=== PATIENT | female | born 1965 | race Caucasian/White ===

== ENCOUNTER 2020-03-30 16:39 | Emergency (ER) | payer SELFPAY ==
[~2020-03-30] VITALS: Ht 167.6 cm; Wt 70.0 kg
[~2020-03-30 16:39] MED LIST: AMOXIL875 MG OR; IBUPROFEN200 M1 OR; LORTAB 5 OR; MOTRIN600 MG OR; NEOPROFEN10 MG/ML IV; VICOPROFEN OR
[2020-03-30] MEDS ORDERED: PROZAC20 MG PO (17:09)
[2020-03-30] MEDS ORDERED: KLONOPIN0.5 MG PO (17:10)
[2020-03-30 17:19] LABS: HEMATOCRIT 44.3 % (37.0-47.0); HEMOGLOBIN 14.8 g/dl (12.0-16.0); IMMATURE GRANULOCYTES 0.2 % (0.0-5.0); MEAN CORPUSCULAR HGB 33.4 pG CALC (26.0-32.0); MEAN CORPUSCULAR HGB CONC 33.4 g/dL CAL (32.0-36.0); NEUT# 5.22 thou/uL (2.00-7.15); RED BLOOD COUNT 4.43 mill/uL (4.20-5.60); RED CELL DISTRI WIDTH 13.1 % (11.5-15.5)
[2020-03-30 17:33] LABS: URINE BILIRUBIN - DIPSTICK NEGATIVE (NEGATIVE); URINE BLOOD DIPSTICK MODERATE (NEGATIVE); URINE COLOR YELLOW; URINE GLUCOSE - DIPSTICK NEGATIVE (NEGATIVE); URINE KETONE NEGATIVE (NEGATIVE); URINE LEUK ESTERASE NEGATIVE (NEGATIVE); URINE NITRITE - DIPSTICK NEGATIVE (Negative); URINE PROTEIN - DIPSTICK NEGATIVE (NEG-TRACE); URINE SPECIFIC GRAVITY 1.025; URINE UROBILINOGEN - DIPSTICK 0.2 E.U./dL (0.2)
[2020-03-30 17:38] LABS: ALBUMIN 4.6 g/dL (3.2-5.0); ALKALINE PHOSPHATASE 60 u/l (38-126); ANION GAP 12 (6-22 (CALC)); BILIRUBIN, TOTAL 0.6 mg/dL (0.0-1.4); BUN 6 mg/dL (7-17); BUN/CREATININE RATIO 12 (12-20 (CALC)); CARBON DIOXIDE 21 mmol/l (22-30); CHLORIDE 105 mmol/l (95-108); CREATININE 0.5 mg/dL (0.5-1.0); GFR > 60 ML/MIN (>=60 (CALC)); GFR FOR AFR.AMER. > 60 ML/MIN (>=60 (CALC)); LIPASE 60 u/l (23-300); POTASSIUM 4.2 mmol/l (3.5-5.1); SGOT/AST 24 u/l (14-36); SODIUM 134 mmol/l (137-146); TOTAL PROTEIN 7.2 g/dL (6.3-8.2)
[2020-03-30 17:40] LABS: URINE SQUAMOUS EPITHELIAL CELL FEW EPI/hpf (0-FEW); URINE WBC 0-2 WBC/hpf (0-5)
[2020-03-30 18:30] VITALS: BP 123/86
== END 2020-03-30 18:30 | disposition home or self-care (01) | DRG 204 ==
LOC: ED 16:39
PROVIDERS: Family Medicine
DX: R07.81 Pleurodynia (principal); R31.9 Hematuria, unspecified; F17.210 Nicotine dependence, cigarettes, uncomplicated

== ENCOUNTER 2020-08-20 13:24 | Emergency (ER) | payer SELFPAY ==
[~2020-08-20] VITALS: Ht 167.6 cm; Wt 72.0 kg
[~2020-08-20 13:24] MED LIST changes: +KLONOPIN0.5 MG PO; +PROZAC20 MG PO
[2020-08-20] MEDS ORDERED: TRAMADOL HYDROC50 M1 PO (16:57)
[2020-08-20 17:04] VITALS: BP 154/87
== END 2020-08-20 17:30 | disposition home or self-care (01) | DRG 93 ==
LOC: ED 13:24
DX: G89.29 Other chronic pain (principal); M25.561 Pain in right knee; F41.9 Anxiety disorder, unspecified; F32.9 Major depressive disorder, single episode, unspecified; F17.210 Nicotine dependence, cigarettes, uncomplicated

== ENCOUNTER 2021-10-25 11:18 | Emergency (ER) | payer SELFPAY ==
[~2021-10-25] VITALS: Ht 167.6 cm; Wt 85.0 kg
[~2021-10-25 11:18] MED LIST changes: +TRAMADOL HYDROC50 M1 PO
[2021-10-25 12:07] LABS: HEMATOCRIT 44.7 % (37.0-47.0); HEMOGLOBIN 14.5 g/dl (12.0-16.0); IMMATURE GRANULOCYTES 0.2 % (0.0-5.0); MEAN CELL VOLUME 103.5 fL CALC (80.0-100.0); MEAN CORPUSCULAR HGB 33.6 pG CALC (26.0-32.0); MEAN CORPUSCULAR HGB CONC 32.4 g/dL CAL (32.0-36.0); NEUT# 5.68 thou/uL (2.00-7.15); RED BLOOD COUNT 4.32 mill/uL (4.20-5.60); RED CELL DISTRI WIDTH 12.8 % (11.5-15.5)
[2021-10-25 12:36] LABS: ALBUMIN 4.1 g/dL (3.2-5.0); ALKALINE PHOSPHATASE 70 u/l (38-126); BILIRUBIN, TOTAL 0.8 mg/dL (0.0-1.4); BUN 3 mg/dL (7-17); BUN/CREATININE RATIO 6 (12-20 (CALC)); C-REACTIVE PROTEIN 0.9 mg/dL (0-0.9); CHLORIDE 105 mmol/l (95-108); CREATININE 0.6 mg/dL (0.5-1.0); GFR > 60 ML/MIN (>=60 (CALC)); GFR FOR AFR.AMER. > 60 ML/MIN (>=60 (CALC)); POTASSIUM 4.4 mmol/l (3.5-5.1); SGOT/AST 41 u/l (14-36); SODIUM 140 mmol/l (137-146); TOTAL PROTEIN 6.8 g/dL (6.3-8.2)
[2021-10-25 12:46] LABS: ANION GAP 12 (6-22 (CALC)); CARBON DIOXIDE 27 mmol/l (22-30)
[2021-10-25 15:13] VITALS: BP 99/58
== END 2021-10-25 15:23 | disposition home or self-care (01) | DRG 179 ==
LOC: ED 11:18
PROVIDERS: Family Medicine
DX: U07.1 COVID-19 (principal); F41.9 Anxiety disorder, unspecified; F32.A Depression, unspecified; F17.210 Nicotine dependence, cigarettes, uncomplicated

== ENCOUNTER 2022-07-02 12:56 | Emergency (ER) | payer SELFPAY ==
[~2022-07-02] VITALS: Ht 167.6 cm; Wt 75.0 kg
[2022-07-02 13:27] LABS: HEMATOCRIT 47.3 % (37.0-47.0); IMMATURE GRANULOCYTES 0.2 % (0.0-5.0); MEAN CELL VOLUME 99.8 fL CALC (80.0-100.0); MEAN CORPUSCULAR HGB 33.8 pG CALC (26.0-32.0); MEAN CORPUSCULAR HGB CONC 33.8 g/dL CAL (32.0-36.0); NEUT# 5.04 thou/uL (2.00-7.15); RED BLOOD COUNT 4.74 mill/uL (4.20-5.60); RED CELL DISTRI WIDTH 12.8 % (11.5-15.5)
[2022-07-02 13:54] LABS: ALBUMIN 4.5 g/dL (3.2-5.0); ALKALINE PHOSPHATASE 71 u/l (38-126); BILIRUBIN, TOTAL 0.7 mg/dL (0.0-1.4); BUN 5 mg/dL (7-17); BUN/CREATININE RATIO 9 (12-20 (CALC)); CHLORIDE 110 mmol/l (95-108); CREATININE 0.6 mg/dL (0.5-1.0); GFR FOR AFR.AMER. > 60 ML/MIN (>=60 (CALC)); GFR OTHER RACES > 60 ML/MIN (>=60 (CALC)); POTASSIUM 4.3 mmol/l (3.5-5.1); SGOT/AST 32 u/l (14-36); SODIUM 138 mmol/l (137-146); TOTAL PROTEIN 7.2 g/dL (6.3-8.2)
[2022-07-02 13:58] LABS: ANION GAP 15 (6-22 (CALC)); CARBON DIOXIDE 17 mmol/l (22-30)
[2022-07-02 14:32] VITALS: BP 174/82
[2022-07-02] MEDS ORDERED: XANAX0.25 MG PO (15:15)
[2022-07-03] MEDS ORDERED: PHENERGAN25 MG RE (07:33)
[2022-07-03] MEDS ORDERED: MAGNESIUM200 MG PO (07:33)
[2022-07-03] MEDS ORDERED: IMODIUM2 MG PO (07:33)
[2022-07-03] MEDS ORDERED: ZOFRAN4 MG/TAB PO (07:33)
== END 2022-07-02 15:37 | disposition home or self-care (01) | DRG 313 ==
LOC: ED 12:56
PROVIDERS: Family Medicine
DX: R07.89 Other chest pain (principal); F41.0 Panic disorder [episodic paroxysmal anxiety]; F32.A Depression, unspecified; F17.200 Nicotine dependence, unspecified, uncomplicated

== ENCOUNTER 2022-07-03 03:50 | Emergency (ER) | payer SELFPAY ==
[2022-07-03] VITALS (9 sets, daily range): BP systolic 126–161; BP diastolic 59–134
[~2022-07-03] VITALS: Ht 167.6 cm; Wt 75.0 kg
[~2022-07-03 03:50] MED LIST changes: +XANAX0.25 MG PO
[2022-07-03 04:12] LABS: HEMOGLOBIN 15.7 g/dl (12.0-16.0); IMMATURE GRANULOCYTES 0.5 % (0.0-5.0); MEAN CELL VOLUME 101.1 fL CALC (80.0-100.0); MEAN CORPUSCULAR HGB 33.8 pG CALC (26.0-32.0); MEAN CORPUSCULAR HGB CONC 33.4 g/dL CAL (32.0-36.0); NEUT# 7.45 thou/uL (2.00-7.15); RED BLOOD COUNT 4.65 mill/uL (4.20-5.60); RED CELL DISTRI WIDTH 12.8 % (11.5-15.5)
[2022-07-03 04:28] LABS: ALBUMIN 4.3 g/dL (3.2-5.0); ALKALINE PHOSPHATASE 66 u/l (38-126); BILIRUBIN, TOTAL 0.7 mg/dL (0.0-1.4); BUN 7 mg/dL (7-17); BUN/CREATININE RATIO 12 (12-20 (CALC)); CHLORIDE 105 mmol/l (95-108); CREATININE 0.6 mg/dL (0.5-1.0); GFR FOR AFR.AMER. > 60 ML/MIN (>=60 (CALC)); GFR OTHER RACES > 60 ML/MIN (>=60 (CALC)); LIPASE 53 u/l (23-300); MAGNESIUM 1.5 mg/dL (1.6-2.3); SGOT/AST 31 u/l (14-36); SODIUM 139 mmol/l (137-146); TOTAL PROTEIN 6.7 g/dL (6.3-8.2)
[2022-07-03 04:30] LABS: D-DIMER 0.24 mg/L (0.19-0.60)
[2022-07-03 04:32] LABS: ANION GAP 15 (6-22 (CALC)); CARBON DIOXIDE 23 mmol/l (22-30)
[2022-07-03 04:33] LABS: ACT PARTIAL THROMBO TIME 27.3 SECONDS (20.0-32.5); PROTHROMBIN TIME 10.4 SECONDS (9.0-12.5)
[2022-07-03 04:40] LABS: MYOGLOBIN 32 ng/mL (0 - 62)
[2022-07-03 06:37] LABS: URINE BILIRUBIN - DIPSTICK NEGATIVE (NEGATIVE); URINE BLOOD DIPSTICK MODERATE (NEGATIVE); URINE COLOR YELLOW; URINE GLUCOSE - DIPSTICK NEGATIVE (NEGATIVE); URINE KETONE NEGATIVE (NEGATIVE); URINE LEUK ESTERASE NEGATIVE (NEGATIVE); URINE PROTEIN - DIPSTICK NEGATIVE (NEG-TRACE); URINE UROBILINOGEN - DIPSTICK 0.2 E.U./dL (0.2)
[2022-07-03 06:41] LABS: URINE NITRITE - DIPSTICK NEGATIVE (Negative)
[2022-07-03 06:47] LABS: URINE SQUAMOUS EPITHELIAL CELL FEW EPI/hpf (0-FEW); URINE WBC 0-2 WBC/hpf (0-5)
[2022-07-03] MEDS ORDERED: IMODIUM2 MG PO (07:33)
[2022-07-03] MEDS ORDERED: PHENERGAN25 MG RE (07:33)
[2022-07-03] MEDS ORDERED: MAGNESIUM200 MG PO (07:33)
[2022-07-03] MEDS ORDERED: ZOFRAN4 MG/TAB PO (07:33)
== END 2022-07-03 07:51 | disposition home or self-care (01) | DRG 641 ==
LOC: ED 03:50
PROVIDERS: Family Medicine
DX: E83.42 Hypomagnesemia (principal); K52.9 Noninfective gastroenteritis and colitis, unspecified
CPT/HCPCS: Q9967

== ENCOUNTER 2024-06-09 12:34 | Emergency (ER) | payer OTHER ==
[~2024-06-09] VITALS: Ht 167.6 cm; Wt 70.0 kg
[2024-06-09] VITALS (8 sets, daily range): BP systolic 69–152; BP diastolic 39–111
[~2024-06-09 12:34] MED LIST changes: +IMODIUM2 MG PO; +LISINOPRIL10 MG PO; +MAGNESIUM200 MG PO; +PHENERGAN25 MG RE; +ZOFRAN4 MG/TAB PO
[2024-06-09] MEDS ORDERED: NAPROXEN500 MG PO (14:19)
[2024-06-09] MEDS ORDERED: KETOROLAC TROMETHAMINE 30 MG/ML SDV IM ONE (14:25)
== END 2024-06-09 14:43 | disposition home or self-care (01) | DRG 563 ==
LOC: ED 12:34
DX: S93.402A Sprain of unspecified ligament of left ankle, initial encounter (principal); F41.9 Anxiety disorder, unspecified; F32.A Depression, unspecified; F17.200 Nicotine dependence, unspecified, uncomplicated; X50.0XXA Overexertion from strenuous movement or load, initial encounter; Y93.H9 Activity, other involving exterior property and land maintenance, building and construction; Y92.007 Garden or yard of unspecified non-institutional (private) residence as the place of occurrence of the external cause

== ENCOUNTER 2024-09-18 10:07 | Observation (INO) | payer OTHER ==
[~2024-09-18] VITALS: Ht 167.6 cm; Wt 70.0 kg
[2024-09-18] VITALS (42 sets, daily range): BP systolic 105–173; BP diastolic 65–127
[~2024-09-18 10:07] MED LIST changes: +NAPROXEN500 MG PO
--- NOTE | 2024-09-18 10:10 | NUR ---
PT WALKED BACK TO ER ROOM 10 WITH A STEADY GAIT
[2024-09-18] MEDS ORDERED: ASPIRIN 81 MG/TAB PO ONE (10:20)
[2024-09-18 10:49] LABS: BASO% 0.3 % (0-3); EOS% 2.7 % (0-8); HEMATOCRIT 44.6 % (37.0-47.0); HEMOGLOBIN 14.6 g/dl (12.0-16.0); IMMATURE GRANULOCYTES 0.2 % (0.0-5.0); LYMPH% 17.6 % (15-41); MEAN CELL VOLUME 104.7 fL CALC (80.0-100.0); MEAN CORPUSCULAR HGB 34.3 pG CALC (26.0-32.0); MEAN CORPUSCULAR HGB CONC 32.7 g/dL CAL (32.0-36.0); MONO% 6.5 % (2-13); NEUT# 6.71 thou/uL (2.00-7.15); NEUT% 72.7 % (42-76); RED BLOOD COUNT 4.26 mill/uL (4.20-5.60); RED CELL DISTRI WIDTH 13.1 % (11.5-15.5)
[2024-09-18 11:07] LABS: ALBUMIN 4.5 g/dL (3.2-5.0); ALKALINE PHOSPHATASE 72 u/l (38-126); ANION GAP 13 (6-22 (CALC)); BILIRUBIN, TOTAL 0.5 mg/dL (0.02-1.3); BUN 4 mg/dL (7-17); BUN/CREATININE RATIO 7 (12-20 (CALC)); CARBON DIOXIDE 26 mmol/l (22-30); CHLORIDE 101 mmol/l (95-108); CREATININE 0.6 mg/dL (0.5-1.0); ESTIMATED GFR 103 ML/MIN (>=90 (CALC)); POTASSIUM 4.6 mmol/l (3.5-5.1); SGOT/AST 39 u/l (14-36); TOTAL PROTEIN 6.8 g/dL (6.3-8.2)
[2024-09-18 11:08] LABS: SODIUM 135 mmol/l (137-146)
[2024-09-18] MEDS ORDERED: methylPREDNISolone SODIUM SUCC 125 MG/2 ML SDV IV ONE (11:10)
[2024-09-18] MEDS ORDERED: IPRATROPIUM-Albuterol 0.5MG-2.5MG/3 ML NEB ONE ×2 (11:10)
[2024-09-18] MEDS ORDERED: KETOROLAC TROMETHAMINE 15 MG/ML SDV IV ONE (12:45)
[2024-09-18] MEDS ORDERED: FUROSEMIDE 40 MG/4 ML SDV IV ONE (14:45)
[2024-09-18] MEDS ORDERED: guaiFENesin-CODEINE 200-20 MG/10 ML UDC PO ONE (15:40)
--- NOTE | 2024-09-18 16:57 | NUR ---
Alexander Jackman notified that patient requesting to leave AMA. Patient unwilling to be admitted to hospital.
--- NOTE | 2024-09-18 17:00 | NUR ---
Patient educated on COPD disease process, hypoxia and current diagnosis. Patient 86% on room air. Patient's O2 sats 93% on 2L NC. Dr. Munoz on phone and communictaed to patient that hospital admission recommended.
[2024-09-18] MEDS ORDERED: IPRATROPIUM-Albuterol 0.5MG-2.5MG/3 ML NEB PRN (17:05)
[2024-09-18] MEDS ORDERED: MAGNESIUM HYDROXIDE 30 ML UDC PO PRN (17:05)
[2024-09-18] MEDS ORDERED: ACETAMINOPHEN 325 MG/TAB PO PRN (17:05)
--- NOTE | 2024-09-18 17:37 | NUR ---
Report called to WILBUR Cespedes.
--- NOTE | 2024-09-18 17:43 | NUR ---
Patient transported to ICU for [facility] tele admission via wheelchair.
--- NOTE | 2024-09-18 17:46 | NUR ---
PATIENT ARRIVED TO ICU FROM ED patient arrived via wheel chair ambulated to bed; vitals was collected. O2 was destating in the 80s, applied patient on NC @3L and RT was called; head to toe was completed; personal items is within reach; educated distribution estimator light and safety measures; allergy band was applied; medicated per emar; nictine patch was applied to left upper arm, chart was completed; call light within reach, bed in lowest postion;safety measures in place
[2024-09-18] MEDS ORDERED: clonazePAM 0.5 MG/TAB PO SCH (18:00)
[2024-09-18] MEDS ORDERED: methylPREDNISolone Sod Succ 40 MG/ML SDV IV SCH (18:00)
[2024-09-18] MEDS ORDERED: DOXYCYCLINE HYCLATE 100 MG in SODIUM CHLORIDE 0.9% 100 ML IV SCH (18:00)
[2024-09-18] MEDS ORDERED: NICOTINE TRANSDERMAL 21 MG/PATCH TD SCH (18:00)
[2024-09-18] MEDS ORDERED: guaiFENesin-CODEINE 200-20 MG/10 ML UDC PO PRN (19:00)
--- NOTE | 2024-09-18 19:00 | NUR ---
PERFORMED BEDSIDE SHIFT REPORT ON PATIENT AND HEARD STRONG PRODUCTIVE COUGH AND SPOKE AND REQUESTED DR. PARK FOR A PRN COUGH MEDICATION. NEW ORDERS GIVEN. PT GIVEN A SNACK.
[2024-09-18] MEDS ORDERED: BAYER ASPIRIN E81 MG PO (19:20)
[2024-09-18] MEDS ORDERED: ENOXAPARIN SODIUM 40 MG/0.4 ML SYR SC SCH (21:00)
--- NOTE | 2024-09-18 21:00 | NUR ---
PT REQUESTED SNACK AND OFFERED FLUIDS. PATIENT WAS EDUCATED ABOUT HER NIGHT MEDICATIONS.
--- NOTE | 2024-09-18 23:00 | NUR ---
PT STATED THAT "THE COUGH MEDICINE MAKES THE PAIN DECREASE, IT MAKES ME A LITTLE DROWSY TOO". PATIENT'S COUGH HAS BEEN LESS SINCE COUGH MEDICINE GIVEN.
[2024-09-19] VITALS (59 sets, daily range): BP systolic 82–150; BP diastolic 55–105
--- NOTE | 2024-09-19 | NUR ---
PATIENT WAS OFFERED TOILETING BUT REFUSED SHE SAID SHE HAD VOIDED PRIOR TO SHIFT CHANGE.
--- NOTE | 2024-09-19 01:00 | NUR ---
PT RESTING IN PRONE POSITION.
[2024-09-19 05:11] LABS: BASO% 0.1 % (0-3); HEMATOCRIT 46.3 % (37.0-47.0); HEMOGLOBIN 15.4 g/dl (12.0-16.0); IMMATURE GRANULOCYTES 0.3 % (0.0-5.0); MEAN CELL VOLUME 103.6 fL CALC (80.0-100.0); MEAN CORPUSCULAR HGB 34.5 pG CALC (26.0-32.0); MEAN CORPUSCULAR HGB CONC 33.3 g/dL CAL (32.0-36.0); MONO% 2.6 % (2-13); NEUT# 11.51 thou/uL (2.00-7.15); RED BLOOD COUNT 4.47 mill/uL (4.20-5.60); RED CELL DISTRI WIDTH 12.7 % (11.5-15.5)
[2024-09-19] MEDS ORDERED: SODIUM CHLORIDE 0.9% 100 ML IV ONE (05:15)
[2024-09-19 05:22] LABS: ALBUMIN 4.4 g/dL (3.2-5.0); BILIRUBIN, TOTAL 0.5 mg/dL (0.02-1.3); CREATININE 0.5 mg/dL (0.5-1.0); TOTAL PROTEIN 6.8 g/dL (6.3-8.2)
[2024-09-19 05:28] LABS: POTASSIUM 5.3 mmol/l (3.5-5.1)
--- NOTE | 2024-09-19 06:00 | NUR ---
HUNG PATIENT'S MORNING ANTIBIOTICS AND PATIENT DENIED FLUIDS OR BATHROOM.
--- NOTE | 2024-09-19 08:00 | NUR ---
PATIENT SITTING ON THE SIDE OF THE BED FOR BREAKFAST. ASSESSMENT COMPLETED. PATIENT ALERT AND ORIENTED X 4. DENIES PAIN. LUNG WHEEZES/DIMINISHED TO ASCULTATION. BREATHING EVEN AND UNLABORED ON 4L NC. DENIES OXYGEN USE AT HOME. AFEBRILE 97.1. SR ON THE MONITOR. SAFETY MEASURES IN PLACE INCLUDING BED IN LOW POSITION AND CALL LIGHT RESTING NEXT TO L ARM. NO APPARENT DISTRESS NOTED. WILL CONTINUE WITH PLAN OF CARE.
[2024-09-19] MEDS ORDERED: LISINOPRIL 10 MG/TAB PO SCH (09:00)
[2024-09-19] MEDS ORDERED: FLUoxetine HCL 10 MG/CAP PO SCH (09:00)
[2024-09-19] MEDS ORDERED: NITROGLYCERIN 0.4 MG/TAB SL PRN (09:05)
[2024-09-19] MEDS ORDERED: ASPIRIN 81 MG/TAB PO SCH (10:00)
[2024-09-19 10:04] LABS: CHOLESTEROL HDL RATIO 2.9 (<4.4 (CALC))
[2024-09-19] MEDS ORDERED: cefTRIAXone SODIUM 2 GM in SODIUM CHLORIDE 0.9% 100 ML IV SCH (10:30)
[2024-09-19 10:35] LABS: TSH, 3RD GENERATION 0.3 uIU/mL (0.47 - 4.68)
--- NOTE | 2024-09-19 12:00 | NUR ---
PATIENT LYING IN BED. MOTHER AT BEDSIDE. PATIENT C/O COUGH, WILL ATTEMPT TO FIND PATIENT COUGH DROPS REQUESTED. NO ADDITIONAL CONCERNS AT THIS TIME. WILL CONTINUE TO MONITOR.
--- NOTE | 2024-09-19 15:25 | NUR ---
PER PATIENT, ONLY MOTHER AND DAUGHTEREVITA, TO RECEIVE INFORMATION OVER THE PHONE
--- NOTE | 2024-09-19 16:02 | NUR ---
PATIENT NOTED TO BE SOB, RECEIVED BREATHING TX APPROX 1530. DENIES ADDITIONAL CONCERNS AT THIS TIME. WILL CONTINUE WITH PLAN OF CARE
--- NOTE | 2024-09-19 19:30 | NUR ---
awake. denies distress. o2 cont per nc. quality assurance monitor shows sinus rhythm freq pvcs. po fluids taken well. voids per bathroom. fall precautions cont.
[2024-09-19] MEDS ORDERED: ATORVASTATIN CALCIUM 40 MG/TAB PO SCH (21:00)
--- NOTE | 2024-09-19 22:45 | NUR ---
requested turkey wrap-given.
[2024-09-20] VITALS (15 sets, daily range): BP systolic 93–173; BP diastolic 55–101
--- NOTE | 2024-09-20 00:01 | NUR ---
eyes closed. no distress.
--- NOTE | 2024-09-20 04:00 | NUR ---
resting quietly. no apparent distress.
--- NOTE | 2024-09-20 04:30 | NUR ---
lab here. blood drawn.
[2024-09-20 04:41] LABS: BASO% 0.1 % (0-3); EOS% 0.1 % (0-8); HEMATOCRIT 46.6 % (37.0-47.0); HEMOGLOBIN 15.4 g/dl (12.0-16.0); IMMATURE GRANULOCYTES 0.3 % (0.0-5.0); LYMPH% 5.9 % (15-41); MEAN CELL VOLUME 103.6 fL CALC (80.0-100.0); MEAN CORPUSCULAR HGB 34.2 pG CALC (26.0-32.0); MONO% 2.8 % (2-13); NEUT# 17.85 thou/uL (2.00-7.15); NEUT% 90.8 % (42-76); RED BLOOD COUNT 4.5 mill/uL (4.20-5.60); RED CELL DISTRI WIDTH 13.1 % (11.5-15.5)
[2024-09-20 05:14] LABS: ALBUMIN 4.4 g/dL (3.2-5.0); BILIRUBIN, TOTAL 0.4 mg/dL (0.02-1.3); POTASSIUM 5.1 mmol/l (3.5-5.1); TOTAL PROTEIN 6.7 g/dL (6.3-8.2)
[2024-09-20 05:18] LABS: CREATININE 0.5 mg/dL (0.5-1.0)
--- NOTE | 2024-09-20 07:44 | NUR ---
PATIENT SITTING UP IN BED. ASSESSMENT COMPLETED. PATIENT ALERT AND ORIENTED X 4. DENIES PAIN AT THIS TIME. LUNGS CLEAR/DIMINISHED TO ASCULTATION. BREATHING EVEN AND UNLABORED ON ROOM AIR. OXY SAT 94%. PATIENT DENIES CONCERNS AT THIS TIME. SAFETY MEASURES IN PLACE INCLUDING BED IN LOW POSITION AND CALL LIGHT RESTING NEXT TO L HAND. NO APPARENT DISTRESS NOTED. WILL CONTINUE WITH PLAN OF CARE.
[2024-09-20] MEDS ORDERED: IPRATROPIUM-Albuterol 0.5MG-2.5MG/3 ML NEB PRN (08:36)
[2024-09-20] MEDS ORDERED: methylPREDNISolone Sod Succ 40 MG/ML SDV IV SCH (09:00)
--- NOTE | 2024-09-20 12:22 | NUR ---
PATIENT SITTING UP IN BED. VISITOR AT BEDSIDE. DENIES CONCERNS AT THIS TIME. NO APPARENT DISTRESS NOTED. WILL CONTINUE WITH PLAN OF CARE
--- NOTE | 2024-09-20 19:10 | NUR ---
awake. denies resp diff. retouching operator shows sinus rhythm freq pvcs. saline lock in place. po fluids taken well. voids per bathroom. fall precautions cont.
--- NOTE | 2024-09-20 21:40 | NUR ---
sputum spec collected & sent to lab.
[2024-09-21 00:01] VITALS: BP 98/67
--- NOTE | 2024-09-21 00:01 | NUR ---
eyes closed. no distress.
[2024-09-21 04:00] VITALS: BP 113/71
--- NOTE | 2024-09-21 04:00 | NUR ---
eyes closed. radiographer cardiac catheterization shows sinus rhythm freq pvcs.
--- NOTE | 2024-09-21 04:50 | NUR ---
lab here. blood drawn.
[2024-09-21 05:09] LABS: BASO% 0.1 % (0-3); EOS% 0.2 % (0-8); HEMATOCRIT 48.8 % (37.0-47.0); HEMOGLOBIN 15.7 g/dl (12.0-16.0); IMMATURE GRANULOCYTES 0.3 % (0.0-5.0); LYMPH% 30.5 % (15-41); MEAN CELL VOLUME 107.5 fL CALC (80.0-100.0); MEAN CORPUSCULAR HGB 34.6 pG CALC (26.0-32.0); MEAN CORPUSCULAR HGB CONC 32.2 g/dL CAL (32.0-36.0); MONO% 6.7 % (2-13); NEUT# 8.55 thou/uL (2.00-7.15); NEUT% 62.2 % (42-76); RED BLOOD COUNT 4.54 mill/uL (4.20-5.60); RED CELL DISTRI WIDTH 13.3 % (11.5-15.5)
[2024-09-21 05:33] LABS: ALBUMIN 4.3 g/dL (3.2-5.0); BILIRUBIN, TOTAL 0.5 mg/dL (0.02-1.3); CREATININE 0.6 mg/dL (0.5-1.0); MAGNESIUM 2.1 mg/dL (1.6-2.3); POTASSIUM 4.2 mmol/l (3.5-5.1); TOTAL PROTEIN 6.6 g/dL (6.3-8.2)
[2024-09-21 06:01] VITALS: BP 115/70
--- NOTE | 2024-09-21 08:00 | NUR ---
REPORT RECEIVED FROM NIGHT NURSE. PT IS A/O. CURRENTLY ON RA; SATTING 90%. LUNG SOUNDS DIMINISHED THROUGHOUT. PT HAS NO SOB AT REST BUT DOES WITH ACTIVITY. PT IS EAGER TO GO HOME. DENIES ANY NEEDS. AFEBRILE. CALL LIGHT IN REACH. VSS.
[2024-09-21 10:05] VITALS: BP 124/96
[2024-09-21] MEDS ORDERED: DOXYCYCLINE100 MG PO (10:34)
[2024-09-21] MEDS ORDERED: COD PO (10:41)
[2024-09-21] MEDS ORDERED: GUAIFENESIN PO (10:41)
[2024-09-21] MEDS ORDERED: PREDNISONE10 MG PO (10:43)
--- NOTE | 2024-09-21 11:40 | NUR ---
PT GIVEN DISCHARGE EDUCATION. AWARE OF NEW PRESCRIPTIONS. GIVEN WORK RELEASE. ALL PT QUESTIONS ANSWERED. IV REMOVED. ALL BELONGINGS GATHERED AND SENT HOME WITH PT. PT IN GOOD CONDITION UPON DISCHARGE AND TAKEN TO ENTRANCE BY WHEELCHAIR.
--- NOTE | 2024-09-24 15:03 | NUR ---
Discharge follow up call completed 09/24/24. Patient states she is still having SOB and chest tightness but thinks it is a little better than when hospitalized. Patient is taking medication as directed. Patient is trying to schedule a follow up apppointment but has been unable to do so yet due to holiday closures. She will continue trying. No needs or concerns verbalized at this time.
== END 2024-09-21 11:40 | disposition home or self-care (01) | DRG 202 ==
LOC: ED 10:07 → ED-I 14:31 → ED 14:45 → ICU 14:46
PROVIDERS: Family Medicine; Internal Medicine; ADMIT Internal Medicine; ATTEND Internal Medicine
DX: J20.9 Acute bronchitis, unspecified (principal); J96.01 Acute respiratory failure with hypoxia; R07.89 Other chest pain; I49.3 Ventricular premature depolarization; I10 Essential (primary) hypertension; F41.9 Anxiety disorder, unspecified; F32.A Depression, unspecified; F17.200 Nicotine dependence, unspecified, uncomplicated
CPT/HCPCS: J0696; J1650; J1885; J1940

== ENCOUNTER 2024-12-18 22:51 | Emergency (ER) | payer OTHER ==
[~2024-12-18] VITALS: Ht 167.6 cm; Wt 65.0 kg
[~2024-12-18 22:51] MED LIST changes: +BAYER ASPIRIN E81 MG PO; +COD PO; +DOXYCYCLINE100 MG PO; +GUAIFENESIN PO; +PREDNISONE10 MG PO
[2024-12-18 23:09] VITALS: BP 142/107
[2024-12-18] MEDS ORDERED: SODIUM CHLORIDE 0.9% 1,000 ML IV STA (23:12)
[2024-12-18] MEDS ORDERED: PROMETHAZINE HCL 25 MG/ML AMP IV ONE (23:15)
[2024-12-18] MEDS ORDERED: KETOROLAC TROMETHAMINE 30 MG/ML SDV IV ONE (23:15)
[2024-12-18 23:18] VITALS: BP 176/123
[2024-12-18 23:30] VITALS: BP 160/109
[2024-12-18 23:44] LABS: HEMATOCRIT 49.9 % (37.0-47.0); HEMOGLOBIN 16.8 g/dl (12.0-16.0); IMMATURE GRANULOCYTES 0.3 % (0.0-5.0); LYMPH% 9.3 % (15-41); MEAN CORPUSCULAR HGB 33.2 pG CALC (26.0-32.0); MEAN CORPUSCULAR HGB CONC 33.7 g/dL CAL (32.0-36.0); NEUT# 17.63 thou/uL (2.00-7.15); NEUT% 84.4 % (42-76); RED BLOOD COUNT 5.06 mill/uL (4.20-5.60); RED CELL DISTRI WIDTH 11.8 % (11.5-15.5)
[2024-12-18 23:45] VITALS: BP 162/110
[2024-12-18 23:46] LABS: MEAN CELL VOLUME 98.6 fL CALC (80.0-100.0)
[2024-12-18 23:55] LABS: ALBUMIN 5.1 g/dL (3.2-5.0); CREATININE 1.2 mg/dL (0.5-1.0)
[2024-12-19] VITALS (10 sets, daily range): BP systolic 124–154; BP diastolic 87–121
[2024-12-19] LABS: BILIRUBIN, TOTAL 0.8 mg/dL (0.02-1.3)
[2024-12-19 00:01] LABS: TOTAL PROTEIN 8.1 g/dL (6.3-8.2)
[2024-12-19] MEDS ORDERED: PANTOPRAZOLE SODIUM Sesquihydr 40 MG/TAB PO ONE (02:15)
[2024-12-19] MEDS ORDERED: Acetaminophen 300 MG/Codeine 30 MG/COMBO PO ONE (02:15)
[2024-12-19] MEDS ORDERED: ALUM & MAG HYDROX-SIMETHICONE 30 ML PO ONE (02:15)
[2024-12-19] MEDS ORDERED: PROMETHAZINE HY25 M1 PO (02:16)
[2024-12-19] MEDS ORDERED: DICYCLOMINE HYD10 MG PO (02:16)
[2024-12-19] MEDS ORDERED: PERCOGESI1 PO (02:16)
== END 2024-12-19 02:45 | disposition home or self-care (01) | DRG 392 ==
LOC: ED 22:51
PROVIDERS: Family Medicine
DX: K52.9 Noninfective gastroenteritis and colitis, unspecified (principal); F41.9 Anxiety disorder, unspecified; F32.A Depression, unspecified; F17.200 Nicotine dependence, unspecified, uncomplicated; Z20.822 Contact with and (suspected) exposure to COVID-19
CPT/HCPCS: J2550; Q9967